=== PATIENT | male | born 1970 | race Caucasian/White ===

== ENCOUNTER 2019-11-09 17:35 | Emergency (ER) | payer BC ==
[2019-11-09] MEDS ORDERED: Ketorolac 30 MG/ML SDV IM ONE (19:07)
--- NOTE | 2019-11-09 19:08 | EDM.PDOC ---
ED HPI GENERAL MEDICAL PROBLEM - General Chief Complaint: Respiratory Problem Stated Complaint: FEVER,COUGH Time Seen by Provider: 11/09/19 19:07 Source of Information: Reports: Patient - History of Present Illness INITIAL COMMENTS - FREE TEXT/NARRATIVE: Patient is a 49-year-old male no past medical history presenting with chief complaint of cough, body aches, congestion. Patient states symptoms have been ongoing for the past 3 days. Patient states he has been coughing some mild sputum and having some posttussive emesis. Patient denies any sore throat, nasal congestion, nausea, vomiting. Patient called his PMD 2 days ago who started him on Levaquin. Patient reports taking Levaquin without any improvement of symptoms. In addition, patient is been taken Tylenol Motrin with helps with the fevers but has been taking time off of work. Patient needs note for work as well as requesting medicine for his cough. Denies recent travels. was sick with similar symptoms. Pmhx: None Pshx: None Family Hx: noncontributory Smoking history? no Etoh use? none Drug use? none In addition to that documented in the HPI above, the additional ROS was obtained : Constitutional: Per HPI Eyes: Denies vision changes ENMT: Denies sore throat CV: Denies chest pain Resp: Denies SOB GI: Denies vomiting or diarrhea : Denies painful urination MSK: Denies recent trauma Skin: Denies new rashes Neuro: Denies new numbness or tingling or weakness Endocrine: Denies unexpected weight loss Heme: Denies bleeding disorders I have reviewed the triage vital signs Const: Well nourished, well developed, appears stated age Eyes: PERRL, no conjunctival injection HENT: NCAT, Neck supple without meningismus CV: RRR, Warm, well-perfused extremities RESP: CTAB, Unlabored respiratory effort GI: soft, non-tender, non-distended, no masses MSK: No gross deformities appreciated Skin: Warm, dry. No rashes Neuro: Alert, financial services associate II-XII grossly intact. Sensation and motor function of extremities grossly intact. Psych: Appropriate mood and affect Assessment and plan: Patient 49-year-old male with flulike symptoms. Patient is not in any respiratory distress and while triage vital signs demonstrated he was tachypneic with a respiratory rate of 24 on my exam he is breathing comfortably at a rate of 16-18. Patient had no abnormalities on on lung exam be concerning for pneumonia or bronchitis. Patient is likely influenza given his symptomatology. Patient will be given supportive care and return precautions. All questions were addressed and answered. Patient agrees with plan. chest Pain Score (Numeric/FACES): 5 - Related Data Allergies Allergy/AdvReac Type Severity Reaction Status Date / Time No Known Allergies Allergy Verified 11/09/19 18:39 Home Meds: Home Meds Benzonatate [Tessalon Perle] 100 mg PO TID #21 capsule 11/09/19 [Rx] Levofloxacin 750 mg PO DAILY 11/09/19 [History] Past Medical History - Past Health History Medical/Surgical History: Denies Medical/Surgical History Social & Family History - Family History Family Medical History: Noncontributory - Tobacco Use Smoking Status *Q: Never Smoker - Recreational Drug Use Recreational Drug Use: No ED ROS GENERAL - Review of Systems Review Of Systems: See Below ED EXAM, GENERAL - Physical Exam Exam: See Below Course - Vital Signs Last Recorded V/S: Last Vital Signs Temp 37.1 C 11/09/19 18:40 Pulse 85 11/09/19 18:40 Resp 24 H 11/09/19 18:40 BP 140/81 11/09/19 18:40 Pulse Ox 94 L 11/09/19 18:40 - Orders/Labs/Meds Orders: Active Orders 24 hr Category Date Time Status EKG Documentation Completion [RC] STAT Care 11/09/19 18:51 Active INFLUENZA A+B AG SCREEN [RM] Stat Lab 11/09/19 18:51 Ordered Meds: Medications Discontinued Medications Generic Name Dose Route Start Last Admin Trade Name Marioq PRN Reason Stop Dose Admin Ketorolac Tromethamine 30 mg 11/09/19 19:07 Toradol IM 11/09/19 19:08 ONETIME ONE Departure - Departure Time of Disposition: 19:15 Disposition: Home, Self-Care 01 Clinical Impression: Influenza - Discharge Information Prescriptions: Benzonatate [Tessalon Perle] 100 mg PO TID #21 capsule Referrals: PCP,None [Primary Care Provider] - Forms: ED Department Discharge Additional Instructions: The following information is given to patients seen in the emergency department who are being discharged to home. This information is to outline your options for follow-up care. We provide all patients seen in our emergency department with a follow-up referral. The need for follow-up, as well as the timing and circumstances, are variable depending upon the specifics of your emergency department visit. If you don't have a primary care physician on staff, we will provide you with a referral. We always advise you to contact your personal physician following an emergency department visit to inform them of the circumstance of the visit and for follow-up with them and/or the need for any referrals to a consulting specialist. The emergency department will also refer you to a specialist when appropriate. This referral assures that you have the opportunity for follow-up care with a specialist. All of these measure are taken in an effort to provide you with optimal care, which includes your follow-up. Under all circumstances we always encourage you to contact your private physician who remains a resource for coordinating your care. When calling for follow-up care, please make the office aware that this follow-up is from your recent emergency room visit. If for any reason you are refused follow-up, please contact the [facility] Emergency Department at and asked to speak to the emergency department charge nurse. Sepsis Event Note - Evaluation Sepsis Screening Result: No Definite Risk - Focused Exam Vital Signs: Vital Signs Temp Pulse Resp BP Pulse Ox 11/09/19 18:40 37.1 C 85 24 H 140/81 94 L Date Exam was Performed: 11/09/19 Time Exam was Performed: 19:12
== END 2019-11-09 19:52 | disposition home or self-care (01) ==
LOC: MW.ED 17:35
DX: J11.1 Influenza due to unidentified influenza virus with other respiratory manifestations (principal); Z79.899 Other long term (current) drug therapy
CPT/HCPCS: 87804; 93005; 96372; 99284; J1885